=== PATIENT | male | born 1945 | race Caucasian/White ===

== ENCOUNTER 2024-05-21 13:54 | Emergency (ER) | payer OTHER, SELFPAY ==
[2024-05-21] VITALS (7 sets, daily range): BP systolic 130–181; BP diastolic 76–115; PULSE 75–100; BMI 20.4
[2024-05-21] MEDS: ZOFRAN 4 MG IV (16:01)
[2024-05-21] MEDS: ANTIVERT 25 MG PO (16:02)
[2024-05-21 16:24] LABS: Urine Albumin Negative (Neg - Trace); Urine Bilirubin Negative (Negative); Urine Character Clear (Clear); Urine Color Yellow; Urine Glucose Negative (Negative); Urine Ketone 2+ (Negative); Urine Leukocyte Negative (Negative); Urine Nitrite Negative (Negative); Urine Occult Blood Negative (Negative); Urine Specific Gravity 1.015 (<1.030); Urine Urobilinogen Negative (Neg - 1+)
--- NOTE | 2024-05-21 16:28 | ED.GENMED ---
History of Present Illness
General
Chief Complaint: Dizziness
Source: patient
Exam Limitations: none
Time Seen by Provider: 05/21/24 15:24
Nursing documentation reviewed up to this point in time: agreed with
History of Present Illness
History of Present Illness:
pt is a 78 y/o M with h/o HTN,, HLD, depression anxiety
remote h/o vertigo
for a few years now having waxing and waning symptoms, loss of appetite, anxiety, feels overhwelemed, lightheaded, weak but then the next day comes and symptoms resolve
the past few nights when pt has gotten out of bed he felt dizzy like room spinning but then it went away
until this mornning, pt has very positional dizziness like the room is psinnign and feels nauseated with this. if he keeps his head still and lays down he feels ok but otherwise is weak, has no appetite and a mild headache
he denies vision changes, neck pain, cp, sob, vomiting, diarrhea.
pt ate normally yesterday for thanksgiving
he says this feels like similar vertigo
as far as the other chronic symptoms go, he has had w/u by pcp the past few years; they haven't really found much
he very remotely was on antidepressant and valium for anxieyt but he weaned off 15 years ago and hasn't seen psychiatry since. but he thinks this reminds him of his depression/anxiety from the past ;he never felt meds helped
Past History
Past History
ED Past Medical History: HTN, Hypercholesterolemia and Other (migraines)
Phy Exam
Physical Exam
Physical Exam:
GENERAL: Alert , anixous
EYE: pupils equal and reactive
no obvious nystagmus
eoms intact
NECK: Supple
ENT: o/p clr, mVERY DRY LIPS, dry mouth
CARDIAC: Regular rate and rhythm .
LUNGS: Clear breath sounds bilaterally, no acute respiratory distress, no wheezes/rales/rhonchi
ABDOMEN: Soft, without focal tenderness, no r/g, no cvat, normal bowel sounds
NEUROLOGICAL: Alert and oriented, no focal neuro deficits, CN intact, strength intact, sensation itnact, finger to nose normal
SKIN: Warm and dry, skin intact.
MUSCULOSKELETAL: No edema, well perfused. neg kirill's sign
PSYCH: Normal and appropriate interaction. anxious
DON HALLPIKE POS [employer] FAST BEAT TO R
Course
Orders/Labs/Results
Orders:
Orders
05/21/24 14:03
Electrocardiogram (*1) Urgent
Reason for Study: Vertigo / Dizzy
EKG- Treatment ONCE
05/21/24 15:44
Meclizine [Antivert] 25 mg PO NOW STA
Ondansetron Injectable [Zofran] 4 mg IV NOW STA
05/21/24 15:45
CT Head W/o Iv Contrast Urgent
Comment:
Reason For Exam: dizzy
05/21/24 15:46
Orthostatic VS- Treatment ONCE
05/21/24 15:59
Complete Blood Count/With Diff Urgent
Comprehensive Metabolic Panel Urgent
Magnesium Urgent
TSH Reflex To Free T4 Urgent
Troponin I Urgent
Urinalysis Reflex To Culture Urgent
Date Specimen was Collected: 05/21/24
Time Specimen was Collected: 15:57
05/21/24 16:34
0.9% Sodium Chloride 1000 ml [Nss] 1,000 ml IV BOLUS
Abnormal Lab Results
05/21/24
15:59
RBC 4.46 L 10^6/uL
(4.70-6.10)
MCH 31.2 H pg
(27.0-31.0)
MPV 10.7 H fL
(7.4-10.4)
Absolute Lymphs (auto) 0.5 L 10^3/uL
(1.2-3.4)
Neutrophils % 84.7 H %
(42.2-75.2)
Lymphocytes % 9.9 L %
(20.5-51.1)
BUN 23 H mg/dl
(9-20)
Glucose 107 H mg/dl
(70-99)
Urine Ketones 2+ A
(Negative)
05/21/24 15:59
05/21/24 15:59
Vital Signs
Initial and Last Documented VS:
Initial Vital Signs
Temp Pulse Resp BP Pulse Ox
36.4 C 88 16 181/115 97
05/21/24 14:00 05/21/24 14:00 05/21/24 14:00 05/21/24 14:00 05/21/24 14:00
Last Documented Vital Signs
Temp Pulse Resp BP Pulse Ox
36.4 C 66 21 148/76 94
05/21/24 14:00 05/21/24 18:15 05/21/24 18:15 05/21/24 18:00 05/21/24 18:15
MDM/Problems Addressed
Differential Diagnosis Includes:
vertigo, dehdyration, near sycnope, anxiety, electrolyte imbalacne, less likely stroke
MDM/Problems Addressed:
78 y/o M
with years of symtoms offeeling waxing and waning anxiety, loss of appetite, fatigue
one day will feel grat and the next day not eat and feel lousy
has had w/u and no one can figure it out
pt used to be on high dose benzo after but came off them slowly and is afraid to see psychiatrist in case they would recommend other meds like that for his anxiety and depression
pt says his yspmtmos he usually has are MUCH worse since thi smornig and now he feels room spinning diziness that reminds him of when he had vertigo years ago
pt has no headache, neck pain, fever, vomiting, but feels a little naueated and otherwise doen't feel well
his exam is remarkable for + orthostatics
as well as don hallpike pos with nystagmus positional dizziness c/w BPPV
pt had some mild elevation of BUN and 2+ ketones in urine
given fluids and reassessed pt on his feet and he loks well, steady and not dizzy afte rmeclizine as wlel
recommend pt to see pcp or psychiatry for his eating issues
but otherwise meclizine bid x 2 days and then prn
and inc fluids
*Critical Care Note
Total Time (30-74mins, 75-104mins- exclusive of procedures): Not Applicable
ED Attending Note
-
Portions of this chart may have been created with voice recognition software.� Occasional wrong word or��sound alike� substitutions may have occurred due to the inherent limitations of voice recognition software.
Discharge Plan
Departure
Patient Disposition: Home (Routine Discharge)
Date of Disposition: 05/21/24
Time of Disposition: 18:54
Patient with high blood pressure during this ER visit?: No
Condition: Fair
Discharge Problem:
Vertigo, Orthostatic dizziness
Instructions: Vertigo (a Type of Dizziness) (DC)
Prescriptions:
New
meclizine 25 mg tablet
25 mg PO BID PRN (Reason: dizziness) Qty: 10 0RF
No Action
levothyroxine [Synthroid] 50 mcg Tablet
50 mcg PO DAILY
finasteride 5 mg Tablet
5 mg PO DAILY
doxazosin 2 mg Tablet
2 mg PO HS
ezetimibe 10 mg Tablet
10 mg PO NOON
omega 2-pss-vqn-fish oil [Fish Oil] 1,200 (144-216) mg Capsule
2 cap PO DAILY
Rx Instructions:
1 after breakfast, 1 after lunch
Colace 50 mg Capsule
100 mg PO BID
oxycodone 5 mg tablet
5 - 10 mg PO Q4HPRN PRN (Reason: moderate to severe pain) Qty: 10 0RF
Referrals:
Jean Mitchell CRNP [Family Provider] - Follow up in 2-3 days
Activity Restrictions/Additional Instructions:
Your symptoms are probably a combination of being dehydrated causing some dizziness when you stand up as well as vertigo. You should try meclizine 25 mg twice a day for 2 days and then only as needed for these dizziness symptoms. Avoid sudden
turning of your head or bending forward. Drink plenty of fluids to stay hydrated. Please speak with your family doctor regarding further workup for possible treatment for depression
return for worsening symptoms like passing out, headache, weakness, chest pain etc
Interventions
Interventions:
*Risk Screen - Suicide Last Done: 05/21/24 14:04
*Neglect/Abuse Screening Last Done: 05/21/24 14:04
ED- Fall Risk Assessment Last Done: 05/21/24 16:00
*Nursing Disposition Last Done: 05/21/24 19:08
ED- Neurological Assessment Last Done: 05/21/24 16:00
ED- Cardiac Assessment Last Done: 05/21/24 16:00
ED Swallowing Screen Last Done: 05/21/24 16:00
Discharge Date and Time
Discharge Date/Time: 05/21/24 19:09
Print Language: SAMMARINESE
[2024-05-21 16:30] LABS: % Basophils 0.6 % (0-2); % Eosinophils 0.2 % (0-6); % Immature Granulocytes 0.2 % (0-0.5); % Lymphocytes 9.9 % (20.5-51.1); % Monocytes 4.4 % (1.7-9.3); % Neutrophils 84.7 % (42.2-75.2); Absolute Lymphocytes 0.5 10^3/uL (1.2-3.4); Absolute Monocytes 0.2 10^3/uL (0.1-0.6); Absolute Neutrophils 4.6 10^3/uL (1.4-6.5); Hematocrit 40.8 % (39.0-52.0); Hemoglobin 13.9 g/dL (13.0-18.0); Mean Corp Hgb Conc. 34.1 g/dL (33.0-37.0); Mean Corpuscular Hgb 31.2 pg (27.0-31.0); Mean Corpuscular Volume 91.5 fL (80.0-94.0); Mean Platelet Volume 10.7 fL (7.4-10.4); Nucleated Red Blood Cells % 0 % (-); Platelet Count 165 10^3/uL (130-400); Red Blood Cell Count 4.46 10^6/uL (4.70-6.10); White Blood Cell Count 5.4 10^3/uL (4.8-10.8)
[2024-05-21 16:40] LABS: ALT (SGPT) 20 U/L (0-50); AST (SGOT) 25 U/L (17-59); Albumin 4.2 g/dl (3.5-5.0); Alkaline Phosphatase 66 U/L (38-126); Blood Urea Nitrogen 23 mg/dl (9-20); Calcium 9.5 mg/dl (8.4-10.2); Carbon Dioxide 26 mmol/L (22-30); Chloride 105 mmol/L (98-107); Estimated Creatinine Clearance 79 ml/min; Glucose 107 mg/dl (70-99); Magnesium 2.1 mg/dl (1.6-2.3); Potassium 4.3 mmol/L (3.5-5.1); Sodium 140 mmol/L (135-145); Total Bilirubin 0.8 mg/dl (0.2-1.3); Total Protein 6.8 g/dl (6.3-8.2); eGFR > 60.00
[2024-05-21 16:46] LABS: Troponin I < 0.012 ng/ml
[2024-05-21] MEDS: NSS 1000 IV (16:59)
[2024-05-21 17:17] LABS: TSH Reflex To Free T4 0.81 uIU/ml (0.47-4.68)
== END 2024-05-21 19:09 | disposition home or self-care (01) ==
LOC: EMR 13:54
PROVIDERS: Physician Assistant; EMERGENCY PHYSICIAN Student in an Organized Health Care Education/Training Program; FAMILY PHYSICIAN Registered Nurse
DX: R42 Dizziness and giddiness (principal); E78.00 Pure hypercholesterolemia, unspecified; I10 Essential (primary) hypertension
CPT/HCPCS: 99284; 96374; 96361; 70450; 80053; 81003; 83735; 84443; 84484; 85025; 93005